=== PATIENT | female | born 1940 | race Caucasian/White ===

== ENCOUNTER 2023-07-24 07:16 | Emergency (ER) | payer OTHER, SELFPAY ==
[2023-07-24] VITALS (10 sets, daily range): BP systolic 118–136; BP diastolic 70–106; BMI 24.6
--- NOTE | 2023-07-24 07:29 | ED.GENMED ---
History of Present Illness
General
Chief Complaint: Fall
Source: patient and ambulance crew
Exam Limitations: none
Time Seen by Provider: 07/24/23 07:19
History of Present Illness
History of Present Illness:
See MDM
Past History
Past History
ED Past Medical History: Arrthythmia (Atrial fibrillation), Cancer, HTN, Other (Lymphedema of the lower extremities, fibromyalgia, bladder prolapse, PE and DVT, sick sinus syndrome with pacemaker) and Other (MRSA wound left leg)
ED Past Surgical History: Cardiac (Pacemaker), Orthopedic and Other (Lumpectomy)
Patient has exhibited threatening behavior?: No
Social History
Tobacco: Non-smoker
Alcohol: None
Drug: None
Personal:
Living: with family
Employment: Retired
Family History
Family History: Hypertension
Phy Exam
Physical Exam
Physical Exam:
See MDM
Course
Orders/Labs/Results
Orders:
Orders
07/24/23 07:26
CT Cervical Spine W/o Iv Contr Urgent
Comment:
Reason For Exam: Fall
CT Head W/o Iv Contrast Urgent
Comment:
Reason For Exam: fall
CR Hips GONZALES w/wo Pel Min 5 Vw* Urgent
Reason For Exam: fall, hip pain
Include a pelvis x-ray?: Yes
Elbow, 3 view, Left [CR Elbow - Left Min 3 Views ] Urgent
Comment:
Reason For Exam: fall, elbow pain
Knee, Right 4 or More Views [CR Knee- Right 4 Or More View*] Urgent
Comment:
Reason For Exam: fall, knee deformity
Shoulder, Left, Trauma CR [CR Shoulder, Trauma - Left] Urgent
Comment:
Reason For Exam: fall, shoulder pain
07/24/23 07:27
Tetanus/Diphth/Acelpertussis [Adacel] 0.5 ml IM .ONCE ONE
07/24/23 08:05
CeFAZolin 1 GRAM [Ancef] 1 gram in 5 ml IV NOW
07/24/23 08:15
Type+Screen Urgent
Complete Blood Count/With Diff Urgent
Comprehensive Metabolic Panel Urgent
PTT Urgent
Prothrombin Time Urgent
07/24/23 09:29
Morphine Sulfate 4 mg .ROUTE .STK-MED ONE
07/24/23 09:32
Morphine Sulfate 4 mg IV NOW STA
Abnormal Lab Results
07/24/23
08:15
RBC 3.88 L 10^6/uL
(4.20-5.40)
MCV 103.6 H fL
(81.0-99.0)
MCH 34.3 H pg
(27.0-31.0)
Absolute Neuts (auto) 7.1 H 10^3/uL
(1.4-6.5)
Absolute Lymphs (auto) 1.0 L 10^3/uL
(1.2-3.4)
Neutrophils % 79.8 H %
(42.2-75.2)
Lymphocytes % 10.8 L %
(20.5-51.1)
PT 28.4 H Sec
(11.4-14.6)
APTT 40.4 H Sec
(23.4-35.0)
BUN 24 H mg/dl
(7-17)
AST 44 H U/L
(14-36)
ALT 55 H U/L
(0-35)
Total Protein 5.6 L g/dl
(6.3-8.2)
07/24/23 08:15
07/24/23 08:15
Vital Signs
Initial and Last Documented VS:
Initial Vital Signs
Temp Pulse Resp BP
97.4 F 68 20 124/91
07/24/23 07:26 07/24/23 07:26 07/24/23 07:26 07/24/23 07:26
Last Documented Vital Signs
Temp Pulse Resp BP Pulse Ox
97.4 F 83 20 118/78 97
07/24/23 07:26 07/24/23 09:34 07/24/23 09:34 07/24/23 09:34 07/24/23 09:34
MDM/Problems Addressed
Differential Diagnosis Includes:
HPI and MDM Narrative:
83-year-old female presenting for evaluation after a fall. Patient stated she tripped out of her scooter. She is on Xarelto for A-fib. Patient complains of right knee pain and left shoulder pain. On exam, patient has significant injury and
deformity to her right knee. The knee is filleted open with exposed bone and ligament. Patient given dose of Ancef and tetanus was updated. There is significant amount of skin tears to the left shoulder and left forearm. Complains of mild
headache.
Will obtain CT head and cervical spine in addition to x-rays of the injuries. Given her significant injuries, patient will require transfer to trauma center
Physical exam
General: Uncomfortable
HEENT: protecting airway. Dry mucous membranes
Neck: supple
CV: No evidence of cyanosis
Resp: No accessory muscle use
Abd: Non-distended
Extremities: Significant deformity to right knee. Skin is filleted open with exposed bone and ligaments. Distal pulses are intact. Significant the large skin tears to left shoulder and forearm
Neuro: alert
Psych: Normal affect
Skin: Multiple abrasions and avulsions
Problems Addressed including Acute and Chronic Conditions affecting care:
1. Right knee deformity
Acuity: acute
Prognosis: unstable
Details: Patient started on Ancef and tetanus updated. Will obtain x-rays looking for open fracture.
2. Multiple abrasions and avulsion
Acuity: acute
Prognosis: unstable
Details: Local wound care performed
3. Headache
Acuity: acute
Prognosis: stable
Details: Given injury on Xarelto, will obtain CT head
4. [ ]
Acuity: acute
Prognosis: stable
Details:
5. [ ]
Acuity:
Prognosis:
Details:
Updates
8:45 AM radiology called indicating no acute pathology in CT head and CT cervical spine. However, there is concern for underlying bilateral apical lung masses. Patient will require a dedicated CT chest. This will be related to trauma team
No knee fracture noted on x-ray. Case discussed with orthopedics who suggested that this may be better suited with plastic surgery. Plastic surgery evaluated the picture and suggested transfer
Case discussed with [place] trauma physician Dr. Pedraza who evaluated the picture and suggested transfer to [facility]
I discussed the case with [facility] trauma surgeon Dr. Hennessy who accepted the patient as a consult. Patient accepted by [facility] Dr. Wilson
Differential Diagnosis (but not limited to): Open knee fracture, intracranial hemorrhage, cervical fracture
Testing considered: Chest x-ray
Drug therapy (if applicable): OTC meds, please see d/c instruction regarding Rx drugs
Amount and/or Complexity of Data Reviewed
Clinical info obtained from: Patient
External data reviewed: N/A
Labs I independently reviewed (but not limited to): Hemoglobin stable
Radiology: X-ray independently reviewed: No fractures noted on x-rays
Pulse Ox: not hypoxic
EKG independently reviewed: N/A
Field Court Researcher: N/A
Critical Care: The high probability of a clinically significant, sudden or life threatening deterioration of the musculoskeletal system(s) required my full and direct attention, intervention and personal management. The aggregate critical care time
was 31 minutes. This time is in addition to time spent performing reported procedures but includes the following:
[x] Data Review and interpretation
[x] Patient assessment and monitoring of vital signs
[x] Documentation
[x] Medication orders and management
Risk of Complication:
Social Determinants of health: Good social support
Discussed with other providers: trauma surgery
Escalation of Care includes Admit/Obs: Given the significance of the injury, patient will be transferred for trauma surgery evaluation
Occasional wrong word or 'sound a like' substitutions may have occurred due to the inherent limitations of voice recognition software. Read the chart carefully and recognize, using context, where substitutions have occurred.
*Critical Care Note
Total Time (30-74mins, 75-104mins- exclusive of procedures): 31 min
ED Attending Note
-
Portions of this chart may have been created with voice recognition software.� Occasional wrong word or��sound alike� substitutions may have occurred due to the inherent limitations of voice recognition software.
Discharge Plan
Departure
Patient Disposition: [facility]
Date of Disposition: 07/24/23
Time of Disposition: 11:06
Discharge Problem:
Laceration of knee, right
Prescriptions:
No Action
prednisone 5 MG tablet
5 mg PO DAILY
cholecalciferol (vitamin D3) 1,000 UNITS tablet
1,000 units PO DAILY
pregabalin 50 MG capsule
50 mg PO QPM
acetaminophen-codeine 1 TABLET tablet
1 tab PO Q6HPRN PRN (Reason: severe pain)
ascorbic acid (vitamin C) 500 MG capsule
500 mg PO DAILY
B-complex with vitamin C 1 CAPLET tablet
1 cap PO DAILY
fludrocortisone 0.1 MG tablet
0.1 mg PO DAILY
Align 4 mg Capsule
4 mg PO DAILY
Xarelto 15 mg Tablet
15 mg PO QPM
cyanocobalamin (vitamin B-12) 250 mcg Tablet
250 mcg PO DAILY
biotin 1,000 mcg Tablet,Chewable
2,000 mcg PO DAILY
calcium carb and citrate-vitD3 [Citracal-D3 Slow Release] 600 mg-12.5 mcg (500 unit) Tablet Extended Release
2 tab PO DAILY
kuknfuqa-chj-UG-lycopen-lutein 0.4 mg-300 mcg- 250 mcg Tablet
1 tab PO DAILY
Prolia 60 mg/mL Syringe
60 mg SC [id number]
Rx Instructions:
scheduled for june 2023
sotalol 80 mg Tablet
80 mg PO DAILY Qty: 30 0RF
vancomycin 125 mg capsule
125 mg PO QID Qty: 52 0RF
vancomycin 125 mg capsule
125 mg PO QID Qty: 5 0RF
Referrals:
Victoria Barnard CRNP [Family Provider] -
Hospital Transfer
Other hospital: [facility]
I certify that the patient requires transfer: Yes
Discussed case with accepting physician: Dr. Wilson
Reason for transfer: higher level of care, availability of service and specialties available
Interventions
Interventions:
*General Assessment Last Done: 07/24/23 07:52
*ED COVID-19 Vaccine History Last Done: 07/24/23 07:46
ED- Neurological Assessment Last Done: 07/24/23 07:52
ED-Skin Assessment Last Done: 07/24/23 07:46
[2023-07-24] MEDS: ADACEL 0.5 ML IM (08:04)
[2023-07-24 08:33] LABS: % Basophils 0.4 % (0-2); % Eosinophils 1.8 % (0-6); % Immature Granulocytes 0.3 % (0-0.5); % Lymphocytes 10.8 % (20.5-51.1); % Monocytes 6.9 % (1.7-9.3); % Neutrophils 79.8 % (42.2-75.2); Absolute Eosinophils 0.2 10^3/uL (0-0.7); Absolute Monocytes 0.6 10^3/uL (0.1-0.6); Absolute Neutrophils 7.1 10^3/uL (1.4-6.5); Hematocrit 40.2 % (37.0-47.0); Hemoglobin 13.3 g/dL (12.0-16.0); Mean Corp Hgb Conc. 33.1 g/dL (33.0-37.0); Mean Corpuscular Hgb 34.3 pg (27.0-31.0); Mean Corpuscular Volume 103.6 fL (81.0-99.0); Mean Platelet Volume 9.9 fL (7.4-10.4); Nucleated Red Blood Cells % 0 %; Platelet Count 197 10^3/uL (130-400); Red Blood Cell Count 3.88 10^6/uL (4.20-5.40); Red Cell Dist. Width 13.6 % (11.5-14.5); White Blood Cell Count 8.9 10^3/uL (4.8-10.8)
[2023-07-24 08:44] LABS: ALT (SGPT) 55 U/L (0-35); AST (SGOT) 44 U/L (14-36); Albumin 3.5 g/dl (3.5-5.0); Alkaline Phosphatase 83 U/L (38-126); Blood Urea Nitrogen 24 mg/dl (7-17); Calcium 8.7 mg/dl (8.4-10.2); Carbon Dioxide 29 mmol/L (22-30); Chloride 107 mmol/L (98-107); Estimated Creatinine Clearance 49 ml/min; Glucose 85 mg/dl (70-99); Sodium 139 mmol/L (135-145); Total Bilirubin 1.2 mg/dl (0.2-1.3); Total Protein 5.6 g/dl (6.3-8.2); eGFR > 60.00
[2023-07-24 08:52] LABS: INR 2.68; PT 28.4 Sec (11.4-14.6)
[2023-07-24 08:53] LABS: APTT 40.4 Sec (23.4-35.0)
[2023-07-24] MEDS: ANCEF 5 IV (08:59)
[2023-07-24] MEDS: MORPHINE SULFATE 4 MG IV (09:33)
== END 2023-07-24 12:55 | disposition short-term general hospital (02) ==
LOC: EMR 07:16
PROVIDERS: EMERGENCY PHYSICIAN Student in an Organized Health Care Education/Training Program; FAMILY PHYSICIAN Nurse Practitioner Adult Health
DX: S81.011A Laceration without foreign body, right knee, initial encounter (principal); S41.012A Laceration without foreign body of left shoulder, initial encounter; S51.812A Laceration without foreign body of left forearm, initial encounter; W01.0XXA Fall on same level from slipping, tripping and stumbling without subsequent striking against object, initial encounter; J90 Pleural effusion, not elsewhere classified; I48.91 Unspecified atrial fibrillation; M25.512 Pain in left shoulder; Z79.01 Long term (current) use of anticoagulants; Z23 Encounter for immunization; Z95.0 Presence of cardiac pacemaker
CPT/HCPCS: 99291; 96374; 96375; 90471; 70450; 72125; 73030; 73080; 73523; 73564; 80053; 85025; 85610; 85730; 86850; 86900; 86901; 90715

== ENCOUNTER → 2023-08-18 11:49 | Outpatient (REF) | payer OTHER, SELFPAY ==
[2023-08-18 12:14] LABS: % Basophils 0.9 % (0-2); % Eosinophils 3.1 % (0-6); % Immature Granulocytes 0.3 % (0-0.5); % Monocytes 13.7 % (1.7-9.3); Absolute Basophils 0.1 10^3/uL (0-0.2); Absolute Eosinophils 0.2 10^3/uL (0-0.7); Absolute Lymphocytes 1.7 10^3/uL (1.2-3.4); Absolute Monocytes 0.8 10^3/uL (0.1-0.6); Absolute Neutrophils 3.1 10^3/uL (1.4-6.5); Hematocrit 34.5 % (37.0-47.0); Hemoglobin 11.2 g/dL (12.0-16.0); Mean Corp Hgb Conc. 32.5 g/dL (33.0-37.0); Mean Corpuscular Hgb 32.3 pg (27.0-31.0); Mean Corpuscular Volume 99.4 fL (81.0-99.0); Mean Platelet Volume 9.9 fL (7.4-10.4); Nucleated Red Blood Cells % 0 %; Platelet Count 241 10^3/uL (130-400); Red Blood Cell Count 3.47 10^6/uL (4.20-5.40); Red Cell Dist. Width 12.9 % (11.5-14.5); White Blood Cell Count 5.8 10^3/uL (4.8-10.8)
[2023-08-18 12:29] LABS: ALT (SGPT) 14 U/L (0-35); AST (SGOT) 28 U/L (14-36); Albumin 2.8 g/dl (3.5-5.0); Alkaline Phosphatase 60 U/L (38-126); Blood Urea Nitrogen 17 mg/dl (7-17); Calcium 8.8 mg/dl (8.4-10.2); Carbon Dioxide 34 mmol/L (22-30); Chloride 99 mmol/L (98-107); Glucose 72 mg/dl (70-99); Magnesium 2.4 mg/dl (1.6-2.3); Potassium 4.3 mmol/L (3.5-5.1); Sodium 137 mmol/L (135-145); Total Bilirubin 0.7 mg/dl (0.2-1.3); Total Protein 5.1 g/dl (6.3-8.2); eGFR > 60.00
[2023-08-18 12:47] LABS: TSH 1.91 uIU/ml (0.47-4.68)
== END ==
LOC: OLABN 11:49
PROVIDERS: ATTENDING PHYSICIAN Student in an Organized Health Care Education/Training Program
DX: Z13.0 Encounter for screening for diseases of the blood and blood-forming organs and certain disorders involving the immune mechanism (principal); Z13.228 Encounter for screening for other metabolic disorders; Z13.29 Encounter for screening for other suspected endocrine disorder
CPT/HCPCS: 36415; 80053; 83735; 84443; 85025

== ENCOUNTER → 2023-10-23 09:26 | Outpatient (REF) | payer OTHER, SELFPAY ==
[2023-10-23 09:59] LABS: % Basophils 0.6 % (0-2); % Eosinophils 2.9 % (0-6); % Immature Granulocytes 0.4 % (0-0.5); % Lymphocytes 30.6 % (20.5-51.1); % Monocytes 13.9 % (1.7-9.3); % Neutrophils 51.6 % (42.2-75.2); Absolute Eosinophils 0.2 10^3/uL (0-0.7); Absolute Lymphocytes 1.7 10^3/uL (1.2-3.4); Absolute Monocytes 0.8 10^3/uL (0.1-0.6); Absolute Neutrophils 2.8 10^3/uL (1.4-6.5); Hemoglobin 11.3 g/dL (12.0-16.0); Mean Corp Hgb Conc. 33.2 g/dL (33.0-37.0); Mean Corpuscular Hgb 31.1 pg (27.0-31.0); Mean Corpuscular Volume 93.7 fL (81.0-99.0); Nucleated Red Blood Cells % 0 %; Platelet Count 248 10^3/uL (130-400); Red Blood Cell Count 3.63 10^6/uL (4.20-5.40); Red Cell Dist. Width 12.8 % (11.5-14.5); White Blood Cell Count 5.5 10^3/uL (4.8-10.8)
[2023-10-23 12:24] LABS: Blood Urea Nitrogen 13 mg/dl (7-17); Calcium 9.1 mg/dl (8.4-10.2); Carbon Dioxide 30 mmol/L (22-30); Chloride 102 mmol/L (98-107); Glucose 68 mg/dl (70-99); Sodium 135 mmol/L (135-145); eGFR > 60.00
== END ==
LOC: OLABN 09:26
PROVIDERS: ATTENDING PHYSICIAN Student in an Organized Health Care Education/Training Program
DX: R60.0 Localized edema (principal)
CPT/HCPCS: 36415; 80048; 85025

== ENCOUNTER 2023-10-28 07:41 | Emergency (ER) | payer OTHER, SELFPAY ==
[2023-10-28] VITALS (9 sets, daily range): BP systolic 138–180; BP diastolic 73–93
[2023-10-28 08:12] LABS: % Basophils 0.4 % (0-2); % Eosinophils 0.7 % (0-6); % Immature Granulocytes 0.5 % (0-0.5); % Lymphocytes 22.5 % (20.5-51.1); % Monocytes 9.4 % (1.7-9.3); % Neutrophils 66.5 % (42.2-75.2); Absolute Eosinophils 0.1 10^3/uL (0-0.7); Absolute Lymphocytes 1.9 10^3/uL (1.2-3.4); Absolute Monocytes 0.8 10^3/uL (0.1-0.6); Absolute Neutrophils 5.6 10^3/uL (1.4-6.5); Hematocrit 37.5 % (37.0-47.0); Hemoglobin 12.4 g/dL (12.0-16.0); Mean Corp Hgb Conc. 33.1 g/dL (33.0-37.0); Mean Corpuscular Hgb 31.1 pg (27.0-31.0); Mean Platelet Volume 9.4 fL (7.4-10.4); Nucleated Red Blood Cells % 0 %; Platelet Count 246 10^3/uL (130-400); Red Blood Cell Count 3.99 10^6/uL (4.20-5.40); Red Cell Dist. Width 13.1 % (11.5-14.5); White Blood Cell Count 8.4 10^3/uL (4.8-10.8)
--- NOTE | 2023-10-28 08:19 | ED.GENMED ---
History of Present Illness
General
Chief Complaint: DVT/Possible Blood Clot
Source: patient and records
Time Seen by Provider: 10/28/23 08:07
Travel History
Have you had any contact with someone who has COVID-19?: No
Do you have any symptoms of coronavirus? Fever > 100 degrees, chills, cough, shortness of breath, sore throat, loss of taste or smell, muscle aches, or headache?: No
History of Present Illness
History of Present Illness:
83-year-old female sent for a cool left leg. Apparently was noted last evening. No pain in the leg no weakness no tingling or numbness. Followed by vascular surgery. Has chronic wounds of the legs.
Past History
Past History
ED Past Medical History: Arrthythmia (Atrial fibrillation), Cancer, HTN, Other (Lymphedema of the lower extremities, fibromyalgia, bladder prolapse, PE and DVT, sick sinus syndrome with pacemaker) and Other (MRSA wound left leg)
ED Past Surgical History: Cardiac (Pacemaker), Orthopedic and Other (Lumpectomy)
Patient has exhibited threatening behavior?: No
Social History
Tobacco: Non-smoker
Alcohol: None
Drug: None
Personal:
Living: with family
Employment: Retired
Family History
Family History: Hypertension
Review of Systems
Review of Systems
All Other Systems: Not applicable
Constitutional: Denies fever
Cardiac: Reports no symptoms
ABD/GI: Reports no symptoms
Phy Exam
Physical Exam
Physical Exam:
GENERAL: Alert and oriented in no apparent distress
EYE: Orbits normal.
NECK: Supple
CARDIAC: Mildly irregular. No murmur. Pacemaker. Good femoral pulses bilaterally. No palpable pulse to the left however there is a weak Doppler pulse
LUNGS: Clear breath sounds,normal
ABDOMEN: Soft, without focal tenderness or distention
NEUROLOGICAL: Alert and oriented , grossly non-focal
SKIN: Warm and dry, dressings to the left and right lower leg. Questionable minimal paleness to the left foot. Chronic venous changes hyperpigmentation
MUSCULOSKELETAL: Edema to both lower extremities
PSYCH: Normal and appropriate interaction.
Course
Orders/Labs/Results
Orders:
Orders
10/28/23 08:02
Complete Blood Count/With Diff Urgent
Comprehensive Metabolic Panel Urgent
PT/INR [Prothrombin Time] Urgent
10/28/23 08:28
IV Insert/Care/Rem.- Treatment PRN
10/28/23 09:07
Lower Ext Arterial & JAMAL US [US Periph Art LOWER Ext w JAMAL] Urgent
Comment:
Reason For Exam: PAD eval
Abnormal Lab Results
10/28/23
08:02
RBC 3.99 L 10^6/uL
(4.20-5.40)
MCH 31.1 H pg
(27.0-31.0)
Absolute Monos (auto) 0.8 H 10^3/uL
(0.1-0.6)
Monocytes % 9.4 H %
(1.7-9.3)
PT 18.8 H Sec
(11.4-14.6)
BUN 21 H mg/dl
(7-17)
Total Protein 5.5 L g/dl
(6.3-8.2)
Albumin 3.0 L g/dl
(3.5-5.0)
10/28/23 08:02
10/28/23 08:02
Vital Signs
Initial and Last Documented VS:
Initial Vital Signs
Temp Pulse Resp BP Pulse Ox
97.5 F 79 18 139/79 94
10/28/23 07:44 10/28/23 07:44 10/28/23 07:44 10/28/23 07:44 10/28/23 07:44
Last Documented Vital Signs
Temp Pulse Resp BP Pulse Ox
97.5 F 84 16 154/80 94
10/28/23 07:44 10/28/23 12:00 10/28/23 12:00 10/28/23 12:00 10/28/23 12:00
MDM/Problems Addressed
Differential Diagnosis Includes:
Patient sent for coolness to the left leg that apparently started overnight. Has her history of atrial fibrillation. On Xarelto. Chronic wounds to the legs. Left foot is clearly cooler than the right. There is also a weak Doppler pulse present.
Awaiting vascular surgery's input.
*Critical Care Note
Total Time (30-74mins, 75-104mins- exclusive of procedures): Not Applicable
Data Reviewed
Review of Other/Old Records Reveals: Labs, Records, Testing and Discharge Summary
Update Note
Update Note:
Seen by vascular surgery. Cleared for discharge
ED Attending Note
-
Portions of this chart may have been created with voice recognition software.� Occasional wrong word or��sound alike� substitutions may have occurred due to the inherent limitations of voice recognition software.
Discharge Plan
Departure
Patient Disposition: Home (Routine Discharge)
Date of Disposition: 10/28/23
Time of Disposition: 13:08
Patient with high blood pressure during this ER visit?: Yes
Discharge Problem:
Vascular evaluation left lower leg
Instructions: BLOOD PRESSURE
Prescriptions:
No Action
prednisone 5 MG tablet
5 mg PO DAILY
pregabalin 50 MG capsule
50 mg PO HS
acetaminophen-codeine 1 TABLET tablet
1 tab PO BIDPRN PRN (Reason: severe pain)
ascorbic acid (vitamin C) 500 MG capsule
500 mg PO DAILY
fludrocortisone 0.1 MG tablet
0.1 mg PO DAILY
Xarelto 15 mg Tablet
15 mg PO HS
Senior Tabs 0.4 mg-300 mcg- 250 mcg Tablet
1 tab PO DAILY
acetaminophen [Tylenol] 325 mg Tablet
650 mg PO Q4HPRN PRN (Reason: mild pain)
lidocaine 4 % Adhesive Patch,Medicated
1 patch TOPICAL DAILY
acetaminophen [Pharbetol] 500 mg Tablet
1,000 mg PO Q6HPRN PRN (Reason: mild pain)
magnesium hydroxide [Milk of Magnesia] 400 mg/5 mL Suspension
2,400 mg PO HSPRN PRN (Reason: constipation)
bisacodyl [Dulcolax (bisacodyl)] 10 mg Suppository
10 mg GA [id number] PRN (Reason: if no bm aft mom)
alum-mag hydroxide-simeth [Mylanta Double-Strength] 400-400-40 mg/5 mL Suspension
30 ml PO DAILY
Banatrol Plus Powder In Packet
1 ea PO TID
Patient Comments:
for 7 days starting on 10/27/23
pregabalin [Lyrica] 25 mg Capsule
25 mg PO DAILY
iVizia (PF) 0.5 % Drops
1 drp ophthalmic (eye) TIDPRN PRN (Reason: both eyes dryness)
sotalol 80 mg tablet
80 mg PO HS
Referrals:
Ramiro Jones DO [Family Provider] - Follow up in 2-3 days
Tito Godoy MD [Active] -
Activity Restrictions/Additional Instructions:
Follow-up with your primary physician and vascular surgeon
Return with increased coolness to the leg pain in the leg weakness in the leg or any other concerning symptoms
Interventions
Interventions:
*Risk Screen - Suicide Last Done: 10/28/23 07:44
*General Assessment Last Done: 10/28/23 07:44
*Neglect/Abuse Screening Last Done: 10/28/23 07:44
ED- Fall Risk Assessment Last Done: 10/28/23 07:51
*ED COVID-19 Vaccine History Last Done: 10/28/23 07:44
ED- Cardiac Assessment Last Done: 10/28/23 07:51
ED- Pulmonary Assessment Last Done: 10/28/23 07:51
ED-Peripheral Vascular Assessment Last Done: 10/28/23 07:51
ED-Skin Assessment Last Done: 10/28/23 07:51
Discharge Date and Time
Print Language: URDU
[2023-10-28 08:23] LABS: INR 1.57; PT 18.8 Sec (11.4-14.6)
[2023-10-28 08:28] LABS: ALT (SGPT) 15 U/L (0-35); AST (SGOT) 20 U/L (14-36); Alkaline Phosphatase 75 U/L (38-126); Blood Urea Nitrogen 21 mg/dl (7-17); Calcium 8.9 mg/dl (8.4-10.2); Carbon Dioxide 30 mmol/L (22-30); Chloride 107 mmol/L (98-107); Estimated Creatinine Clearance 55 ml/min; Glucose 85 mg/dl (70-99); Potassium 4.4 mmol/L (3.5-5.1); Sodium 138 mmol/L (135-145); Total Bilirubin 0.6 mg/dl (0.2-1.3); Total Protein 5.5 g/dl (6.3-8.2); eGFR > 60.00
--- NOTE | 2023-10-28 10:41 | CON.VAS ---
Consultation
Consultation Request
Performing Provider: Walt
Reason for Consultation: PAD evaluation
Medical History
-
Chief Complaint: Left leg coolness
History of Present Illness:
83-year-old female presenting to the emergency room from nursing facility for left leg 'coolness'. A few weeks ago patient fell out of her scooter and sustained a traumatic injury to the right knee which is overall healing well. Patient is known
to the vascular service, last seen in the office a year ago with ultrasounds, she had no complaints at that time. Next appointment was with Dr. Godoy next week.
Vascular consult for PAD evaluation. Patient seen in ultrasound with Dr. Godoy at bedside. Left foot is mildly cooler than right. No wounds to the left foot. Doppler signals present to PT and DP bilaterally. Positive pulses to bilateral femoral
and popliteals. Patient admits to throbbing type pain in her feet. She also admits to tenderness in the legs. Is hard to discern if she is having rest pain.
Past Medical History
Past Medical History: Arrhythmias, Cancer, HTN and Other (Lymphedema of the lower extremities, fibromyalgia, bladder prolapse)
Past Surgical History: Cardiac (pacer) and Orthopedic
Social History
Tobacco: Non-Smoker
Alcohol: None
Drug: None
Personal:
Living: With Family
Employment: Retired
Allergies / Home Medications
Allergy/AdvReac Type Severity Reaction Status Date / Time
clindamycin Allergy Unknown Verified 10/28/23 10:29
cyclobenzaprine Allergy Unknown Verified 10/28/23 10:29
[From Flexeril]
simvastatin Allergy Unknown Verified 10/28/23 10:29
Sulfa (Sulfonamide Allergy Unknown Verified 10/28/23 10:29
Antibiotics)
tramadol Allergy Unknown Verified 10/28/23 10:29
�Medication �Instructions �Recorded �Confirmed �Type
prednisone 5 mg tablet 5 mg PO DAILY Anti-inflammatory 03/16/17 10/28/23 History
pregabalin 50 mg capsule 50 mg PO HS Pain 03/21/20 10/28/23 History
acetaminophen 300 mg-codeine 30 mg 1 tab PO BIDPRN PRN severe pain 12/10/20 10/28/23 History
tablet
ascorbic acid (vitamin C) 500 mg 500 mg PO DAILY Supplement 12/10/20 10/28/23 History
capsule
fludrocortisone 0.1 mg tablet 0.1 mg PO DAILY adrenal 06/27/21 10/28/23 History
insufficiency
rivaroxaban 15 mg tablet (Xarelto) 15 mg PO HS Blood clot 08/01/22 10/28/23 History
prevention/tx
jisjibth-dip-ibpam acid 0.4 1 tab PO DAILY Supplement 06/01/23 10/28/23 History
mg-lycopene 300 mcg-lutein 250 mcg
tablet (Senior Tabs)
acetaminophen 325 mg tablet 650 mg PO Q4HPRN PRN mild pain 10/28/23 10/28/23 History
(Tylenol)
acetaminophen 500 mg tablet 1,000 mg PO Q6HPRN PRN mild pain 10/28/23 10/28/23 History
(Pharbetol)
aluminum-mag hydroxide-simethicone 30 ml PO DAILY Gastrointestinal 10/28/23 10/28/23 History
400 mg-400 mg-40 mg/5 mL oral susp Issue
banana 1 ea PO TID diarrhea 10/28/23 10/28/23 History
flakes-transgalactooligosaccharide
oral powder packet (Banatrol Plus
oral powder packet)
bisacodyl 10 mg rectal suppository 10 mg MO [id number] PRN if no bm aft 10/28/23 10/28/23 History
(Dulcolax (bisacodyl)) mom
lidocaine 4 % topical patch 1 patch topical DAILY right 10/28/23 10/28/23 History
shoulder pain
magnesium hydroxide 400 mg/5 mL 2,400 mg PO HSPRN PRN constipation 10/28/23 10/28/23 History
oral suspension (Milk of Magnesia)
povidone (PF) 0.5 % eye drops 1 drp ophthalmic (eye) TIDPRN PRN 10/28/23 10/28/23 History
(iVizia (PF)) both eyes dryness
pregabalin 25 mg capsule (Lyrica) 25 mg PO DAILY Pain 10/28/23 10/28/23 History
sotalol 80 mg tablet 80 mg PO HS Arrhythmia 10/28/23 10/28/23 History
Review of Systems
-
History Source: Patient
All other systems: Negative unless noted
Constitutional: Reports No Symptoms
EENT: Reports No Symptoms
Respiratory: Reports No Symptoms
Cardiac: Reports No Symptoms
Vascular: Reports Leg Pain / Claudication (?)
Abdomen/GI: Reports No Symptoms
: Reports No Symptoms
Musculoskeletal: Reports Edema
Skin: Reports Other (Wounds from recent traumatic injury)
Neurological: Reports No Symptoms
Physical Exam
Vital Signs
Temp Pulse Resp BP Pulse Ox
97.5 F 88 19 157/93 93
10/28/23 07:44 10/28/23 10:00 10/28/23 10:00 10/28/23 10:00 10/28/23 10:00
Lab Results
10/28/23 08:02
10/28/23 08:02
Physical Exam
General: No Apparent Distress
HEENT: Normocephalic and Atraumatic
Respiratory: Non Labored Respirations
Cardiac: Negative JVD
GI: Soft and Non Tender
Musculoskeletal: No Clubbing, No Cyanosis and Edema
Skin: Warm and Other (Right great toe abrasion, right knee scabbing/scarring-look to be healing well)
Neuro: Awake, Alert and Oriented
Psych: Calm
Pulses: Bilateral Femoral: +2, Bilateral Popliteal: +2, Bilateral Dorsalis Pedis: Doppler and Bilateral Posterior Tibial: Doppler
Assessment / Plan
-
83-year-old female presenting with left foot 'coolness' and throbbing bilateral lower extremities
Plan:
-Arterial ultrasounds pending
-Local wound care
-Will follow-up with patient after ultrasound complete
--- NOTE | 2023-10-28 10:54 | W.PN.UPDATE ---
Update Note
Progress Note Update
Seen and examined in the emergency room/ultrasound. 83-year-old female known to me with chronic lymphedema. History of left lower extremity arteriogram by me 02/11/2018 for chronic wound. At that time found to have an unreconstructable small
vessel disease only. Proximally vessels all open including common femoral, profunda, SFA, popliteal. Two-vessel runoff but at the ankle region there was really termination essentially of the anterior tibial and peroneal arteries which were the
main runoff vessels. This all suggested very small vessel disease. She now presents with bilateral foot pain and perceived left foot coolness by rehab staff. She is in rehab secondary to a fall after tripping over a scooter. Sustained
significant abrasions to right knee and toe. She notes she is not really having as much pain at rest in the feet but more so tenderness to touch in both feet and calves. She maybe has a little bit of resting type pain. But both feet are equally
affected. However the perceived coolness was only in the left foot per the rehab facility. We were asked to evaluate. She denies any lower extremity weakness or numbness. On exam/she is awake and alert. Head is normocephalic and atraumatic.
Eyes are anicteric. Neck is soft without jugular venous distention. Breathing is unlabored. Abdomen is soft. Lower extremity with 2+ femoral and popliteal pulses palpable bilaterally. Nonpalpable distally bilaterally. Right foot is warm and
pink and well-perfused. Left foot is slightly cooler than the right, but toes are pink with maybe slight pallor it with elevation. Cap refill slightly slowed but reasonable. Doppler signals present. Motor and sensory fully intact bilateral feet.
Noninvasive studies so far completed reviewed. Stable TBI's bilaterally. Right side is 0.33, left side 0.52. No evidence of acute occlusive problems. Therefore, I do not think her bilateral foot pain is ischemic in nature. She has chronic
unchanged small vessel disease bilaterally. Would recommend ruling out DVT (venous ultrasound) given tenderness in bilateral calves.
== END 2023-10-28 17:44 | disposition home or self-care (01) ==
LOC: EMR 07:41
PROVIDERS: Emergency Medicine; EMERGENCY PHYSICIAN Emergency Medicine; FAMILY PHYSICIAN Student in an Organized Health Care Education/Training Program; OTHER PHYSICIAN Surgery Vascular Surgery
DX: R60.0 Localized edema (principal); L81.9 Disorder of pigmentation, unspecified; S90.411A Abrasion, right great toe, initial encounter; S80.211A Abrasion, right knee, initial encounter; W19.XXXA Unspecified fall, initial encounter; M79.605 Pain in left leg; M79.604 Pain in right leg; I48.91 Unspecified atrial fibrillation; I10 Essential (primary) hypertension; M79.7 Fibromyalgia; I49.5 Sick sinus syndrome; N81.10 Cystocele, unspecified; Z95.0 Presence of cardiac pacemaker; Z86.718 Personal history of other venous thrombosis and embolism; Z86.711 Personal history of pulmonary embolism; Z86.14 Personal history of Methicillin resistant Staphylococcus aureus infection; Z79.01 Long term (current) use of anticoagulants; Z88.1 Allergy status to other antibiotic agents; Z88.2 Allergy status to sulfonamides; Z88.8 Allergy status to other drugs, medicaments and biological substances
CPT/HCPCS: 99284; 80053; 85025; 85610; 93922; 93925

== ENCOUNTER → 2023-11-12 08:12 | Outpatient (REF) | payer OTHER, SELFPAY | LOC: WOUND 08:12 | PROVIDERS: ATTENDING PHYSICIAN Surgery; FAMILY PHYSICIAN Nurse Practitioner Adult Health | DX: L97.512 Non-pressure chronic ulcer of other part of right foot with fat layer exposed (principal); L97.811 Non-pressure chronic ulcer of other part of right lower leg limited to breakdown of skin; I73.9 Peripheral vascular disease, unspecified; I89.0 Lymphedema, not elsewhere classified; I87.2 Venous insufficiency (chronic) (peripheral) | CPT/HCPCS: 97597; 99213 ==

== ENCOUNTER → 2023-11-17 09:54 | Outpatient (REF) | payer OTHER, SELFPAY ==
[2023-11-17 11:13] LABS: % Basophils 0.5 % (0-2); % Eosinophils 2.6 % (0-6); % Immature Granulocytes 0.5 % (0-0.5); % Lymphocytes 27.3 % (20.5-51.1); % Monocytes 9.3 % (1.7-9.3); % Neutrophils 59.8 % (42.2-75.2); Absolute Eosinophils 0.2 10^3/uL (0-0.7); Absolute Lymphocytes 1.6 10^3/uL (1.2-3.4); Absolute Monocytes 0.5 10^3/uL (0.1-0.6); Absolute Neutrophils 3.4 10^3/uL (1.4-6.5); Hematocrit 37.7 % (37.0-47.0); Hemoglobin 12.1 g/dL (12.0-16.0); Mean Corp Hgb Conc. 32.1 g/dL (33.0-37.0); Mean Corpuscular Hgb 30.6 pg (27.0-31.0); Mean Corpuscular Volume 95.2 fL (81.0-99.0); Mean Platelet Volume 9.9 fL (7.4-10.4); Nucleated Red Blood Cells % 0 %; Platelet Count 219 10^3/uL (130-400); Red Blood Cell Count 3.96 10^6/uL (4.20-5.40); Red Cell Dist. Width 13.9 % (11.5-14.5); White Blood Cell Count 5.7 10^3/uL (4.8-10.8)
[2023-11-17 11:28] LABS: Blood Urea Nitrogen 22 mg/dl (7-17); Carbon Dioxide 31 mmol/L (22-30); Chloride 104 mmol/L (98-107); Glucose 73 mg/dl (70-99); Magnesium 2.3 mg/dl (1.6-2.3); Potassium 4.1 mmol/L (3.5-5.1); Sodium 139 mmol/L (135-145); eGFR > 60.00
== END ==
LOC: OLABN 09:54
PROVIDERS: ATTENDING PHYSICIAN Student in an Organized Health Care Education/Training Program
DX: I50.32 Chronic diastolic (congestive) heart failure (principal); I95.1 Orthostatic hypotension; I89.0 Lymphedema, not elsewhere classified
CPT/HCPCS: 36415; 80048; 83735; 85025

== ENCOUNTER → 2023-11-19 11:06 | Outpatient (REF) | payer OTHER, SELFPAY | LOC: WOUND 11:06 | PROVIDERS: ATTENDING PHYSICIAN Surgery; FAMILY PHYSICIAN Nurse Practitioner Adult Health | DX: L97.512 Non-pressure chronic ulcer of other part of right foot with fat layer exposed (principal); L97.811 Non-pressure chronic ulcer of other part of right lower leg limited to breakdown of skin; I73.9 Peripheral vascular disease, unspecified; I89.0 Lymphedema, not elsewhere classified; I87.2 Venous insufficiency (chronic) (peripheral) | CPT/HCPCS: 97597 ==

== ENCOUNTER → 2023-11-26 09:21 | Outpatient (REF) | payer OTHER, SELFPAY ==
[2023-11-26 12:41] LABS: % Basophils 0.1 % (0-2); % Eosinophils 1.4 % (0-6); % Immature Granulocytes 0.3 % (0-0.5); % Lymphocytes 14.1 % (20.5-51.1); % Monocytes 9.1 % (1.7-9.3); Absolute Eosinophils 0.1 10^3/uL (0-0.7); Absolute Lymphocytes 1.4 10^3/uL (1.2-3.4); Absolute Monocytes 0.9 10^3/uL (0.1-0.6); Absolute Neutrophils 7.6 10^3/uL (1.4-6.5); Hematocrit 35.8 % (37.0-47.0); Hemoglobin 11.2 g/dL (12.0-16.0); Mean Corp Hgb Conc. 31.3 g/dL (33.0-37.0); Mean Platelet Volume 10.3 fL (7.4-10.4); Nucleated Red Blood Cells % 0 %; Platelet Count 225 10^3/uL (130-400); Red Blood Cell Count 3.73 10^6/uL (4.20-5.40); Red Cell Dist. Width 14.6 % (11.5-14.5); White Blood Cell Count 10.2 10^3/uL (4.8-10.8)
[2023-11-26 13:31] LABS: Free T4 1.47 ng/dl (0.78-2.19)
[2023-11-26 13:32] LABS: ALT (SGPT) 16 U/L (0-35); AST (SGOT) 23 U/L (14-36); Albumin 2.7 g/dl (3.5-5.0); Alkaline Phosphatase 70 U/L (38-126); Blood Urea Nitrogen 29 mg/dl (7-17); Calcium 8.4 mg/dl (8.4-10.2); Carbon Dioxide 28 mmol/L (22-30); Chloride 100 mmol/L (98-107); Glucose 83 mg/dl (70-99); Magnesium 2.4 mg/dl (1.6-2.3); Potassium 4.5 mmol/L (3.5-5.1); Sodium 135 mmol/L (135-145); Total Bilirubin 0.7 mg/dl (0.2-1.3); Total Protein 4.9 g/dl (6.3-8.2); eGFR > 60.00
== END ==
LOC: OLABN 09:21
PROVIDERS: ATTENDING PHYSICIAN Student in an Organized Health Care Education/Training Program
DX: I50.32 Chronic diastolic (congestive) heart failure (principal); I95.1 Orthostatic hypotension; M62.81 Muscle weakness (generalized); G61.9 Inflammatory polyneuropathy, unspecified
CPT/HCPCS: 36415; 80053; 83735; 84439; 84443; 85025

== ENCOUNTER → 2023-12-02 10:32 | Outpatient (REF) | payer OTHER, SELFPAY ==
[2023-12-02 11:48] LABS: Hematocrit 37.7 % (37.0-47.0); Hemoglobin 11.6 g/dL (12.0-16.0); Mean Corp Hgb Conc. 30.8 g/dL (33.0-37.0); Mean Corpuscular Hgb 30.2 pg (27.0-31.0); Mean Corpuscular Volume 98.2 fL (81.0-99.0); Platelet Count 215 10^3/uL (130-400); Red Blood Cell Count 3.84 10^6/uL (4.20-5.40); Red Cell Dist. Width 14.6 % (11.5-14.5); White Blood Cell Count 5.8 10^3/uL (4.8-10.8)
[2023-12-02 12:05] LABS: ALT (SGPT) 10 U/L (0-35); AST (SGOT) 21 U/L (14-36); Albumin 2.6 g/dl (3.5-5.0); Alkaline Phosphatase 68 U/L (38-126); Blood Urea Nitrogen 20 mg/dl (7-17); Calcium 8.5 mg/dl (8.4-10.2); Carbon Dioxide 32 mmol/L (22-30); Chloride 101 mmol/L (98-107); Glucose 72 mg/dl (70-99); Magnesium 2.1 mg/dl (1.6-2.3); Potassium 4.2 mmol/L (3.5-5.1); Sodium 137 mmol/L (135-145); Total Bilirubin 0.7 mg/dl (0.2-1.3); Total Protein 4.6 g/dl (6.3-8.2); eGFR > 60.00
== END ==
LOC: OLABN 10:32
PROVIDERS: ATTENDING PHYSICIAN Student in an Organized Health Care Education/Training Program
DX: I50.32 Chronic diastolic (congestive) heart failure (principal)
CPT/HCPCS: 36415; 80053; 83735; 85027

== ENCOUNTER 2024-01-16 12:11 | Emergency (ER) | payer OTHER, SELFPAY ==
[2024-01-16] VITALS (22 sets, daily range): BP systolic 78–101; BP diastolic 58–80; BMI 23.5
--- NOTE | 2024-01-16 12:52 | ED.GENMED ---
History of Present Illness
<Frederic Romero PA-C - Last Filed: 01/16/24 19:14>
General
Chief Complaint: Anal/Rectal Problem
Source: patient
Exam Limitations: none
Time Seen by Provider: 01/16/24 12:36
History of Present Illness
History of Present Illness:
83 year old female presents from [facility] with complaints of rectal prolapse. She had a soft bowel movement today and staff persistent rectal prolapse. She has history of A-fib has a pacemaker on Xarelto. She notes fatigue
but denies chest pain abdominal pain or shortness of breath. No recent fevers. No other complaints.
Past History
<Frederic Romero PA-C - Last Filed: 01/16/24 19:14>
Past History
ED Past Medical History: Arrthythmia (Atrial fibrillation), Cancer, HTN, Other (Lymphedema of the lower extremities, fibromyalgia, bladder prolapse, PE and DVT, sick sinus syndrome with pacemaker) and Other (MRSA wound left leg)
ED Past Surgical History: Cardiac (Pacemaker), Orthopedic and Other (Lumpectomy)
Patient has exhibited threatening behavior?: No
Social History
Tobacco: Non-smoker
Alcohol: None
Drug: None
Personal:
Living: with family
Employment: Retired
Family History
Family History: Hypertension
Phy Exam
<Frederic Romero PA-C - Last Filed: 01/16/24 19:14>
Physical Exam
Physical Exam:
General: Well developed female NAD
HEENT: NC/AT
Heart: Tachycardic and irregular
Lungs: Clear no wheeze
Abdomen soft nontender
Rectal exam: There is a moderate size rectal prolapse noted. This was easily reduced
Extremities: No cyanosis. Bilateral lower extremities wrapped from facility for with lymphedema
Course
<Frederic Romero PA-C - Last Filed: 01/16/24 19:14>
Orders/Labs/Results
Orders:
Orders
01/16/24 12:46
CR Chest Portable - 1 View Urgent
Comment:
Reason For Exam: hypotension
Reason Study Needs to be Portable: Unable to Transport
01/16/24 13:01
Basic Metabolic Panel Urgent
Complete Blood Count/With Diff Urgent
01/16/24 13:30
Electrocardiogram (*1) Urgent
Reason for Study: Abnormal EKG
EKG- Treatment ONCE
01/16/24 13:32
0.9% Sodium Chloride 500 ml [Nss] 500 ml IV BOLUS
01/16/24 13:49
LFT [Qgskm-Oxrg-Bnvedck] Urgent
NT-proBNP Urgent
Potassium Urgent
01/16/24 16:01
Interrogate Pacemaker- Treatment ONCE
01/16/24 17:25
Propofol [Diprivan] 20 ml .ROUTE .STK-MED
01/16/24 18:04
Electrocardiogram (*1) Urgent
Reason for Study: Atrial Fibrillation
EKG- Treatment ONCE
Abnormal Lab Results
01/16/24 01/16/24
13:01 13:49
RBC 3.81 L 10^6/uL
(4.20-5.40)
Hgb 11.4 L g/dL
(12.0-16.0)
Hct 35.1 L %
(37.0-47.0)
MCHC 32.5 L g/dL
(33.0-37.0)
RDW 16.2 H %
(11.5-14.5)
Absolute Lymphs (auto) 0.9 L 10^3/uL
(1.2-3.4)
Absolute Monos (auto) 0.7 H 10^3/uL
(0.1-0.6)
Lymphocytes % 12.2 L %
(20.5-51.1)
Monocytes % 9.8 H %
(1.7-9.3)
Sodium 133 L mmol/L
(135-145)
BUN 29 H mg/dl
(7-17)
Total Protein 5.3 L g/dl
(6.3-8.2)
Albumin 3.0 L g/dl
(3.5-5.0)
01/16/24 13:01
01/16/24 13:49
Vital Signs
Initial and Last Documented VS:
Initial Vital Signs
Temp Pulse Resp BP Pulse Ox
97.6 F 120 20 79/66 94
01/16/24 12:19 01/16/24 12:19 01/16/24 12:19 01/16/24 12:19 01/16/24 12:19
Last Documented Vital Signs
Temp Pulse Resp BP Pulse Ox
97.8 F 74 17 93/62 100
01/16/24 18:30 01/16/24 19:00 01/16/24 19:00 01/16/24 19:00 01/16/24 19:00
<Benny Lemon MD - Last Filed: 01/16/24 18:10>
Orders/Labs/Results
Orders:
Orders
01/16/24 12:46
CR Chest Portable - 1 View Urgent
Comment:
Reason For Exam: hypotension
Reason Study Needs to be Portable: Unable to Transport
01/16/24 13:01
Basic Metabolic Panel Urgent
Complete Blood Count/With Diff Urgent
01/16/24 13:30
Electrocardiogram (*1) Urgent
Reason for Study: Abnormal EKG
EKG- Treatment ONCE
01/16/24 13:32
0.9% Sodium Chloride 500 ml [Nss] 500 ml IV BOLUS
01/16/24 13:49
LFT [Bxhky-Ialq-Tfxfayc] Urgent
NT-proBNP Urgent
Potassium Urgent
01/16/24 16:01
Interrogate Pacemaker- Treatment ONCE
01/16/24 17:25
Propofol [Diprivan] 20 ml .ROUTE .STK-MED
01/16/24 18:04
Electrocardiogram (*1) Urgent
Reason for Study: Atrial Fibrillation
EKG- Treatment ONCE
Abnormal Lab Results
01/16/24 01/16/24
13: 13:49
RBC 3.81 L 10^6/uL
(4.20-5.40)
Hgb 11.4 L g/dL
(12.0-16.0)
Hct 35.1 L %
(37.0-47.0)
MCHC 32.5 L g/dL
(33.0-37.0)
RDW 16.2 H %
(11.5-14.5)
Absolute Lymphs (auto) 0.9 L 10^3/uL
(1.2-3.4)
Absolute Monos (auto) 0.7 H 10^3/uL
(0.1-0.6)
Lymphocytes % 12.2 L %
(20.5-51.1)
Monocytes % 9.8 H %
(1.7-9.3)
Sodium 133 L mmol/L
(135-145)
BUN 29 H mg/dl
(7-17)
Total Protein 5.3 L g/dl
(6.3-8.2)
Albumin 3.0 L g/dl
(3.5-5.0)
01/16/24 13:01
01/16/24 13:49
Vital Signs
Initial and Last Documented VS:
Initial Vital Signs
Temp Pulse Resp BP Pulse Ox
97.6 F 120 20 79/66 94
01/16/24 12:19 01/16/24 12:19 01/16/24 12:19 01/16/24 12:19 01/16/24 12:19
Last Documented Vital Signs
Temp Pulse Resp BP Pulse Ox
97.8 F 74 17 93/62 100
01/16/24 18:30 01/16/24 19:00 01/16/24 19:00 01/16/24 19:00 01/16/24 19:00
Procedures
<Frederic Romero PA-C - Last Filed: 01/16/24 19:14>
Cardioversion
Indication:: Afib
Synchronized?: Yes
Energy Used: 200 joules
Number of attempts: 1
Successful?: Yes
ASA Risk Score: Class II
Any reaction or bad outcome to prior sedation/anesthesia?: No history of a reaction
Sedation level to be attained: moderate
Chart and allergies reviewed: Yes
Patient reassessed prior to sedation: Yes
Time out completed at (validating right patient & procedure): 17:53
History of difficult intubation: No
Airway free of obstruction: Yes
Patient has a gag reflex: Yes
Patient is able to open mouth: Yes
Patient has no dentures: Yes
Patient has no loose teeth: Yes
Medication administered by Provider during Moderate Sedation: IV Propofol (mg)
Total dose administered: 20
Time drug administered: 17:54
Start Time: 17:54
Stop Time: 18:05
<Frederic Romero PA-C - Last Filed: 01/16/24 19:14>
MDM/Problems Addressed
Differential Diagnosis Includes:
Rectal prolapse. This was easily reduced in the room.
Patient has chronic atrial fibrillation. She is in rapid A-fib.. Blood pressure on the softer side initially. Will recheck. I reviewed prior records which demonstrated an echocardiogram performed June 06 which shows an ejection fraction of
55%
<Frederic Romero PA-C - Last Filed: 01/16/24 19:14>
*Critical Care Note
Total Time (30-74mins, 75-104mins- exclusive of procedures): Not Applicable
<Frederic Romero PA-C - Last Filed: 01/16/24 19:14>
Update Note
Update Note:
Patient reevaluated. He has been in sinus rhythm since the cardioversion. Blood pressure improved as well. Discussed all findings with emergency room attending as well as cardiology. Stable for discharge back to facility. Patient to start her
sotalol at the full dose of her normal regimen again.
ED Attending Note
<Frederic Romero PA-C - Last Filed: 01/16/24 19:14>
-
Portions of this chart may have been created with voice recognition software.� Occasional wrong word or��sound alike� substitutions may have occurred due to the inherent limitations of voice recognition software.
<Benny Lemon MD - Last Filed: 01/16/24 18:10>
ED Attending Note
Patient seen and examined by attending physician: Yes
I performed the substantive portion of visit, reviewed & personally made and approve the management plan that is documented in note by myself or JESUS.: Yes
ED Attending Note:
Patient came in primarily as evaluation for rectal prolapse however was noted to be in rapid atrial fibrillation with low blood pressure. This is apparently been going on for about 10 days. No other specific complaints. Discussions have taken
place with cardiology who recommended cardioversion. She had cardioversion in the past. She is on sotalol but it was stopped. Prolapse was reduced and will follow-up.
Interrogation show she has been in A-fib for probably about 10 days which is likely why she is hypotensive. She was cardioverted with 200 J and only 20 mg of propofol without difficulty. She has remained stable. Plan would be discharged to
follow-up with resuming her sotalol and follow-up for the rectal prolapse
Discharge Plan
Departure
Patient Disposition: Home (Routine Discharge)
Date of Disposition: 01/16/24
Time of Disposition: 19:11
Patient with high blood pressure during this ER visit?: No
Discharge Problem:
PAF (paroxysmal atrial fibrillation), Rectal prolapse
Instructions: MODERATE SEDATION ADULT
Prescriptions:
No Action
prednisone 5 MG tablet
5 mg PO DAILY
acetaminophen-codeine 1 TABLET tablet
1 tab PO BIDPRN PRN (Reason: severe pain)
ascorbic acid (vitamin C) 500 MG capsule
500 mg PO DAILY
fludrocortisone 0.1 MG tablet
0.1 mg PO BID@0830,1830
Xarelto 15 mg Tablet
15 mg PO HS
Senior Tabs 0.4 mg-300 mcg- 250 mcg Tablet
1 tab PO DAILY
acetaminophen [Tylenol] 325 mg Tablet
650 mg PO Q4HPRN PRN (Reason: mild pain/fever>100.4)
lidocaine 4 % Adhesive Patch,Medicated
1 patch TOPICAL DAILY
acetaminophen [Pharbetol] 500 mg Tablet
1,000 mg PO Q6HPRN PRN (Reason: moderate pain)
magnesium hydroxide [Milk of Magnesia] 400 mg/5 mL Suspension
2,400 mg PO HSPRN PRN (Reason: constipation)
bisacodyl [Dulcolax (bisacodyl)] 10 mg Suppository
10 mg OR DAILYPRN PRN (Reason: if no bm aft mom)
pregabalin [Lyrica] 25 mg Capsule
50 mg PO BID
Patient Comments:
01/16/2024: give 2 tabs for 7 days then continue with the 50 mg BID
iVizia (PF) 0.5 % Drops
1 drp ophthalmic (eye) TID
sotalol 80 mg tablet
80 mg PO DAILY
sennosides-docusate sodium [Senna-S] 8.6-50 mg Tablet
1 tab-cap PO QPM
Referrals:
Ramiro Jones DO [Family Provider] -
Activity Restrictions/Additional Instructions:
Please resume sotalol at normal dose and regimen. Please return here for worsening symptoms otherwise
Interventions
Interventions:
*Risk Screen - Suicide Last Done: 01/16/24 12:19
*General Assessment Last Done: 01/16/24 12:19
*Neglect/Abuse Screening Last Done: 01/16/24 12:19
ED- Fall Risk Assessment Last Done: 01/16/24 12:33
*ED COVID-19 Vaccine History Last Done: 01/16/24 12:35
GL-Kldeso-Fgahvdpvfm Assessment Last Done: 01/16/24 12:34
ED-Skin Assessment Last Done: 01/16/24 12:33
Discharge Date and Time
Print Language: CUBAN
[2024-01-16 13:07] LABS: % Basophils 0.8 % (0-2); % Eosinophils 2.7 % (0-6); % Immature Granulocytes 0.3 % (0-0.5); % Lymphocytes 12.2 % (20.5-51.1); % Monocytes 9.8 % (1.7-9.3); % Neutrophils 74.2 % (42.2-75.2); Absolute Basophils 0.1 10^3/uL (0-0.2); Absolute Eosinophils 0.2 10^3/uL (0-0.7); Absolute Lymphocytes 0.9 10^3/uL (1.2-3.4); Absolute Monocytes 0.7 10^3/uL (0.1-0.6); Absolute Neutrophils 5.6 10^3/uL (1.4-6.5); Hematocrit 35.1 % (37.0-47.0); Hemoglobin 11.4 g/dL (12.0-16.0); Mean Corp Hgb Conc. 32.5 g/dL (33.0-37.0); Mean Corpuscular Hgb 29.9 pg (27.0-31.0); Mean Corpuscular Volume 92.1 fL (81.0-99.0); Nucleated Red Blood Cells % 0.4 %; Platelet Count 269 10^3/uL (130-400); Red Blood Cell Count 3.81 10^6/uL (4.20-5.40); Red Cell Dist. Width 16.2 % (11.5-14.5); White Blood Cell Count 7.5 10^3/uL (4.8-10.8)
[2024-01-16 13:38] LABS: Blood Urea Nitrogen 29 mg/dl (7-17); Carbon Dioxide 28 mmol/L (22-30); Chloride 103 mmol/L (98-107); Estimated Creatinine Clearance 49 ml/min; Glucose 92 mg/dl (70-99); Sodium 133 mmol/L (135-145); eGFR > 60.00
[2024-01-16] MEDS: NSS 500 IV (13:49)
[2024-01-16 14:10] LABS: ALT (SGPT) 19 U/L (0-35); AST (SGOT) 26 U/L (14-36); Alkaline Phosphatase 119 U/L (38-126); Direct Bilirubin 0.2 mg/dl (0.0-0.4); Potassium 4.8 mmol/L (3.5-5.1); Total Protein 5.3 g/dl (6.3-8.2)
[2024-01-16 14:18] LABS: NT-proBNP 3940 pg/ml
--- NOTE | 2024-01-16 16:32 | CM ---
Met 2 dgtrs in room. Patient has been at [facility] getting therapy. IT is not clear if plan was for LTC. Dgtr were not clear. Patient was only assist of one at [facility]. Dgtr said her BP drops when standing so she was not allowed to do any transfers on her
own. SHe used rolling walker only with staff.
At this time plan is to return to [facility] when stable.
--- NOTE | 2024-01-16 17:57 | EDRN ---
Patient medicated with Diprivan 20mg IV by . Patient shocked with 200 J.
[2024-01-17 00:56] VITALS: BP 94/58
[2024-01-17 02:28] VITALS: BP 102/60
== END 2024-01-17 02:32 | disposition home or self-care (01) ==
LOC: EMR 12:11
PROVIDERS: Emergency Medicine; Physician Assistant; EMERGENCY PHYSICIAN Emergency Medicine; FAMILY PHYSICIAN Student in an Organized Health Care Education/Training Program
DX: K62.3 Rectal prolapse (principal); I48.91 Unspecified atrial fibrillation; I89.0 Lymphedema, not elsewhere classified; M79.7 Fibromyalgia; I10 Essential (primary) hypertension; Z79.01 Long term (current) use of anticoagulants; Z82.49 Family history of ischemic heart disease and other diseases of the circulatory system; Z86.718 Personal history of other venous thrombosis and embolism; Z95.0 Presence of cardiac pacemaker
CPT/HCPCS: 99283; 96360; 71045; 80048; 80076; 83880; 84132; 85025; 93005